=== PATIENT | male | born 1990 | race Caucasian/White ===

== ENCOUNTER 2024-12-19 18:12 | Emergency (ER) | payer OTHER ==
[~2024-12-19] VITALS: Ht 180.3 cm; Wt 79.4 kg
[~2024-12-19 18:12] MED LIST: Crutch1 EACH MISC; HYDACE5 PO; Norco 5-325 Ta1 EACH PO
[2024-12-19 18:25] VITALS: BP 142/93
== END 2024-12-19 19:57 | disposition home or self-care (01) ==
LOC: ER 18:12
DX: S61.411A Laceration without foreign body of right hand, initial encounter (principal); W20.8XXA Other cause of strike by thrown, projected or falling object, initial encounter
CPT/HCPCS: 99282-25